=== PATIENT | male | born 1995 | race Caucasian/White ===

== ENCOUNTER 2017-04-30 21:36 | Emergency (ER) | payer OTHER ==
[2017-05-01] MEDS: NORCO 5/325MG TABLET (BULK FOR ED) PO (02:24)
[2017-05-01] MEDS: GABAPENTIN 100 MG CAP PO (02:24)
== END 2017-05-01 02:35 | disposition home or self-care (01) ==
LOC: M ED 21:36
DX: T33.821A Superficial frostbite of right foot, initial encounter (principal); T33.822A Superficial frostbite of left foot, initial encounter; Y92.84 Military training ground as the place of occurrence of the external cause; Y93.89 Activity, other specified
CPT/HCPCS: 99283